=== PATIENT | male | born 1970 | race African-American/Black ===

== ENCOUNTER 2020-10-13 23:46 | Emergency (ER) | payer BC ==
[2020-10-14 00:51] LABS: Bilirubin Negative (Negative); Blood, Urine 3+ (Negative); Clarity Extra Turbid (Clear); Glucose, Urine (Dipstick) Normal (Negative); Ketone, Urine Negative (Negative); Leukocyte 500 Leu/uL (Negative); Nitrite 2+ (Negative); Protein, Urine (Dipstick) 50 mg/dL (Neg-Trace); RBC/HPF Greater than 50 HPF (0-3); Specific Gravity, Urine 1.021 (1.002-1.036); Squamous Epithelial None Seen HPF (0-3); Urobilinogen Normal mg/dL (Less than 2); WBC/HPF Greater than 50 HPF (0-3); pH, Urine 5.5 (5.0-9.0)
[2020-10-14 01:00] LABS: Bacteria/HPF 1+ HPF (None Seen)
[2020-10-14] MEDS ORDERED: Lidocaine 1% PF 5 ML VIAL ONE (03:44)
[2020-10-14] MEDS ORDERED: cefTRIAXone\\ROCEPHIN 500 MG VIAL ONE (03:44)
[2020-10-15 21:48] LABS: Chlam.trachomatis by PCR,Urine Not Detected (NotDetected)
== END 2020-10-14 03:59 | disposition home or self-care (01) ==
LOC: ERS 23:46
DX: N39.0 Urinary tract infection, site not specified (principal)
CPT/HCPCS: 81003; 81015; 87077; 87086; 87186; 87491; 87591; 96372; 99283; J0696